=== PATIENT | female | born 1985 | race Hispanic/Latino ===

== ENCOUNTER 2024-04-17 01:49 | Emergency (ER) | payer BC ==
[~2024-04-17] VITALS: Ht 149.9 cm; Wt 82.0 kg
[2024-04-17] MEDS ORDERED: BISACODYL 10 MG SUPP PR ONE (03:05)
[2024-04-17] MEDS ORDERED: MIRALAX17 GM PO (03:10)
[2024-04-17] MEDS ORDERED: Polyethylene Glycol 3350 17 GM/PKT PO ONE (03:55)
[2024-04-17 04:24] VITALS: BP 119/74
== END 2024-04-17 04:25 | disposition home or self-care (01) | DRG 392 ==
LOC: ED 01:49
DX: K59.01 Slow transit constipation (principal)